=== PATIENT | male | born 1985 | race Caucasian/White ===

== ENCOUNTER 2023-04-09 21:25 | Emergency (ER) | payer MEDICAID, SELFPAY ==
[2023-04-09 21:29] VITALS: BP 124/77; PULSE 79; RESP 22; O2SAT 100; BMI 24.4
--- NOTE | 2023-04-09 21:30 | ED_ITS ---
HPI - Nausea/Vomiting/Diarrhea General Chief complaint: Dizziness Stated complaint: anxiety Time Seen by Provider: 04/09/23 21:30 History of Present Illness HPI Narrative: patient presents from work. State he because abruptly dizzy with the room spinning. States this has happen before and he found that if he ate something this would help. Tried eating tonight and started vomiting. Presents to the Er via Squad. Squad called [facility] and states he was panicking and they gave 2mg Versed before he arrived. He denies headache or ear pain. no fever or extremity weakness Related Data Home Medications Medication Instructions Recorded Confirmed bupropion HCl 300 mg 24 hr tablet, mg PO 04/09/23 extended release lamotrigine 200 mg tablet mg 04/09/23 quetiapine 50 mg tablet mg 04/09/23 Allergies Allergy/AdvReac Type Severity Reaction Status Date / Time No Known Drug Allergies Allergy Verified 04/09/23 21:37 Review of Systems 2 ROS Status of ROS 10 or more systems reviewed and unremarkable except as noted in history and below PFSH PFSH Social History Smoking status: Current every day smoker Exam Constitutional Vital Signs, click to edit/add: Last Vital Signs Pulse 79 04/09/23 21:29 Resp 22 04/09/23 21:29 BP 124/77 04/09/23 21:29 Pulse Ox 100 04/09/23 21:29 O2 Del Method Room Air 04/09/23 21:29 Common normals: average body habitus, oriented x3, no limitations, healthy appearing, alert and well nourished [facility] Common normals: normocephalic and head/scalp atraumatic Eye Common normals: EOMs intact bilaterally and conjunctivae normal Respiratory Common normals: normal respiratory effort and no use of accessory muscles Cardio Common normals: regular rate, regular rhythm, S1 normal heart sound and S2 normal heart sound GI Common normals: Normal to inspection, nondistended, normoactive bowel sounds present, soft to palpation and non-tender Extremity Common normals: normal to inspection and full ROM Neuro Common normals: oriented x3, CN's II-XII intact bilaterally, moves all extremities and no focal motor deficits Psych Appearance: grossly normal Course Vital Signs Vital signs: Vital Signs Pulse Rate 79 04/09/23 21:29 Respiratory Rate 22 04/09/23 21:29 Blood Pressure 124/77 04/09/23 21:29 Pulse Oximetry 100 04/09/23 21:29 Oxygen Delivery Method Room Air 04/09/23 21:29 Pulse Rate 79 04/09/23 21:29 Respiratory Rate 22 04/09/23 21:29 Blood Pressure 124/77 04/09/23 21:29 Pulse Oximetry 100 04/09/23 21:29 Oxygen Delivery Method Room Air 04/09/23 21:29 MDM - Nausea/Vomiting/Diarrhea MDM Narrative Medical decision making narrative: patient presents with vertigo and vomiting. past episodes of vertigo that he was able to manage himself. labs with mild anemia and mild hypokalemia. Patient treated with valium and ativert with resolution of his symptoms. Discharged home to follow up with his doctor for a recheck Lab Data Labs: Lab Results 04/09/23 Range/Units 21:31 WBC 10.3 (4.0-11.0) 10^3/uL RBC 3.99 L (4.70-6.10) 10^6/uL Hgb 12.6 L (14.0-18.0) g/dL Hct 36.2 L (42.0-54.0) % MCV 90.7 (80.0-94.0) fL MCH 31.6 (25.9-34.0) pg MCHC 34.8 (29.9-35.2) g/dL RDW 11.2 (11.0-15.0) % Plt Count 262 (150-450) 10^3/uL MPV 10.2 (9.5-13.5) fL Neut % (Auto) 78.6 H (43.0-75.0) % Lymph % (Auto) 13.9 L (20.5-60.0) % [place] % (Auto) 6.4 (1.7-12.0) % Eos % (Auto) 0.5 L (0.9-7.0) % Baso % (Auto) 0.4 (0.2-2.0) % Neut # (Auto) 8.1 H (1.4-6.5) 10^3/uL Lymph # (Auto) 1.4 (1.2-3.8) 10^3/uL [place] # (Auto) 0.7 (0.3-0.8) 10^3/uL Eos # (Auto) 0.1 (0.0-0.7) 10^3/uL Baso # (Auto) 0.0 (0.0-0.1) 10^3/uL Abs Immat Gran (auto) 0.02 (0.00-0.03) 10^3/uL Imm/Tot Granulo (auto) 0.2 (0.0-0.5) % Sodium 138 (136-145) mmol/L Potassium 3.2 L (3.5-5.1) mmol/L Chloride 103 (98-107) mmol/L Carbon Dioxide 25.2 (21.0-32.0) mmol/L Anion Gap 13.0 BUN 12.0 (7.0-18.0) mg/dL Creatinine 1.05 (0.70-1.30) mg/dL Est GFR ( Amer) >60 (>=60) Est GFR (Non-Af Amer) >60 (>=60) BUN/Creatinine Ratio 11.4 Glucose 107 H (74-106) mg/dL Calcium 8.8 (8.5-10.1) mg/dL Total Bilirubin 0.6 (0.2-1.0) mg/dL AST 22 (15-37) U/L ALT 23 (16-63) U/L Alkaline Phosphatase 72 (46-116) U/L Total Protein 6.9 (6.4-8.2) g/dL Albumin 4.1 (3.4-5.0) g/dL Globulin 2.8 g/dL Albumin/Globulin Ratio 1.5 Discharge Plan Discharge Chief Complaint: Dizziness Clinical Impression: Benign paroxysmal positional vertigo Patient Disposition: Home, Self-Care Prescriptions / Home Meds: No Action lamotrigine 200 mg tablet bupropion HCl 300 mg tablet extended release 24 hr PO quetiapine 50 mg tablet Instructions: Benign Paroxysmal Positional Vertigo (ED) Additional Instructions: follow up with your doctor next week for recheck. Drink plenty of fluids Stand Alone Forms: Portal Instructions Referrals: MABLE RODRIGUEZ [Physician] - 1 week
--- NOTE | 2023-04-09 21:35 | PC.NURSE ---
Pt presents to ER for extreme nausea/dizziness/anxiety like symptoms Per squad report pt was picked up due to nausea vomiting but pt became very anxious in squad and they were not able to calm him down verbally, pt wa given 2mg of Versed in route per Dr. Barber orders On arrival pt is anxious but cooperative, pt is cold and sweaty but feels hot Pt is visibly restless Pt states he started Wellbutrin a few months ago and these symptoms have been getting worse and more frequent Pt denies suicidal or homicidal ideation Pt states he has a known history of anxiety but has never been told he has had anxiety or panic attacks Pt states he used to go to counseling but it has been a long time Pt was at work when these symptoms began tru Pt has an 18g IV established in the left AC Labs were drawn from site by this nurse Pt given verbal reassurance
[2023-04-09 21:54] LABS: Basophils Percent Auto 0.4 % (0.2-2.0); Eosinophils Absolute Auto 0.1 10^3/uL (0.0-0.7); Eosinophils Percent Auto 0.5 % (0.9-7.0); Hematocrit 36.2 % (42.0-54.0); Hemoglobin 12.6 g/dL (14.0-18.0); Immature Granulocytes Abs Auto 0.02 10^3/uL (0.00-0.03); Immature Granulocytes Pct Auto 0.2 % (0.0-0.5); Lymphocytes Absolute Auto 1.4 10^3/uL (1.2-3.8); Lymphocytes Percent Auto 13.9 % (20.5-60.0); Mean Corpuscular HGB Conc 34.8 g/dL (29.9-35.2); Mean Corpuscular Hemoglobin 31.6 pg (25.9-34.0); Mean Corpuscular Volume 90.7 fL (80.0-94.0); Mean Platelet Volume 10.2 fL (9.5-13.5); Monocytes Absolute Auto 0.7 10^3/uL (0.3-0.8); Monocytes Percent Auto 6.4 % (1.7-12.0); Neutrophils Absolute Auto 8.1 10^3/uL (1.4-6.5); Neutrophils Percent Auto 78.6 % (43.0-75.0); Platelet Count 262 10^3/uL (150-450); Red Blood Count 3.99 10^6/uL (4.70-6.10); Red Cell Distribution Width 11.2 % (11.0-15.0); White Blood Count 10.3 10^3/uL (4.0-11.0)
[2023-04-09 22:09] LABS: Alanine Aminotransferase 23 U/L (16-63); Albumin Globulin Ratio 1.5; Albumin Level 4.1 g/dL (3.4-5.0); Alkaline Phosphatase 72 U/L (46-116); Aspartate Amino Transferase 22 U/L (15-37); BUN Creatinine Ratio 11.4; Bilirubin Total 0.6 mg/dL (0.2-1.0); Calcium 8.8 mg/dL (8.5-10.1); Carbon Dioxide 25.2 mmol/L (21.0-32.0); Chloride 103 mmol/L (98-107); Estimated GFR (African America >60 (>=60); Estimated GFR (Non-African Ame >60 (>=60); Globulin 2.8 g/dL; Glucose 107 mg/dL (74-106); Potassium 3.2 mmol/L (3.5-5.1); Sodium 138 mmol/L (136-145); Total Protein 6.9 g/dL (6.4-8.2)
[2023-04-09] MEDS: MECLIZINE HCL 12.5 MG TABLET 25 MG PO (22:13)
[2023-04-09] MEDS: ONDANSETRON PF 4 MG/2 ML VIAL IV (22:13)
[2023-04-09] MEDS: DIAZEPAM 5 MG/ML - 2 ML INJ SYRINGE IV (22:13)
[2023-04-09] MEDS: 0.9 % SODIUM CHLORIDE 1,000 ML 999 ML IV (22:13)
[2023-04-09 23:31] VITALS: BP 124/77; PULSE 80; RESP 18; O2SAT 100
== END 2023-04-09 23:36 | disposition home or self-care (01) ==
PROVIDERS: Emergency Provider Internal Medicine; PCP Nurse Practitioner
DX: H81.10 Benign paroxysmal vertigo, unspecified ear (principal); Z79.899 Other long term (current) drug therapy; F17.210 Nicotine dependence, cigarettes, uncomplicated; D64.9 Anemia, unspecified; E87.6 Hypokalemia
CPT/HCPCS: 36415; 80053; 85025; 96374; 96375; 99284

== ENCOUNTER 2023-10-26 00:54 | Emergency (ER) | payer MEDICAID, SELFPAY ==
[2023-10-26 01:02] VITALS: BP 153/96; PULSE 94; TEMP 36.4; O2SAT 97; BMI 25.8
--- OUTSIDE RECORDS SUMMARY | 2023-10-26 01:04 | XMS_ITS | CCD ---
Author Organization [facility] Care Team Providers Care Books Binder Name Role Phone TAVO, DR ESEQUIEL Lancaster Admitting Unavailable TAVO, DR ESEQUIEL Lancaster Attending Unavailable TAVO, DR ESEQUIEL Lancaster Consulting Unavailable HOUSE, DR AKINS Primary Care Unavailable Naun, Gaurang Consulting Unavailable HOUSE, DR AKINS Attending Unavailable [place], DR AKINS Consulting Unavailable [facility] [place], DR CARMONA Primary Care Unavailable [place], DR AKINS Admitting Unavailable HOUSE, DR AKINS Admitting Unavailable HOUSE, DR AKINS Attending Unavailable [place], DR PONCHO Hahn Consulting Unavailable HOUSE, DR AKINS Primary Care Unavailable HOUSE, DR AKINS Consulting Unavailable Problems Active Problems Problem Classification Problem Date Documented Da te Episodic/Chronic Abdominal pain (4 sources) Right lower quadrant pain; Translations: [RIGHT LOWER QUADRANT PAIN] Onset: 08-13-2021 Episodic Other nervous system disorders (1 source) Other chronic pain; Translations: [OTHER CHRONIC PAIN] Onset: 08-14-2021 Chronic Substance-related disorders (1 source) Nicotine dependence, cigarettes, uncomplicated; Translations: [NICOTINE DEPEND CIGARETTES UNCOMP] Onset: 08-14-2021 Chronic Unclassified (3 sources) LOW BACK PAIN, UNSPECIFIED; Translations: [LOW BACK PAIN, UNSPECIFIED] Onset: 08-01-2021 Unclassified (2 sources) CONTACT W/AND (SUSP) EXPOS COVID-19; Translations: [CONTACT W/AND (SUSP) EXPOS COVID-19] Onset: 10-02-2020 Viral infection (1 source) COVID-19; Translations: [COVID-19] Onset: 10-02-2020 Past or Other Problems Problem Classification Problem Date Documented Da te Episodic/Chronic Unclassified (1 source) LOW BACK PAIN, UNSPECIFIED; Translations: [LOW BACK PAIN, UNSPECIFIED] Onset: 07-30-2021 Unclassified (1 source) CONTACT W/AND (SUSP) EXPOS COVID-19; Translations: [CONTACT W/AND (SUSP) EXPOS COVID-19] Onset: 09-26-2020 Results Test Name Value Interpretation Reference Range Facil ity AMYLASEon 08-13-2021 Amylase [Catalytic activity/Vol] 59 U/L Normal 31-110 [facility] Comment on above: Performed By: #### A MY, LIPA #### [facility] [address] [place] [address] Dr. Zuleyka Hunt CBC AUTO DIFFon 08-13-2021 BASO # 0.0 103/ul Normal 0.0-0.1 [facility] Comment on above: Performed By: #### C BC #### [facility] [address] [place] [address] Dr. Zuleyka Hunt Basophils/100 WBC (Bld) 0.4 % Normal 0.2-2.0 [facility] Comment on above: Performed By: #### C BC #### [facility] [address] [place] [address] Dr. Zuleyka Hunt EO # 0.2 103/ul Normal 0.0-0.7 [facility] Comment on above: Performed By: #### C BC #### [facility] [address] [place] [address] Dr. Zuleyka Hunt Eosinophils/100 WBC (Bld) 2.2 % Normal 0.9-7.0 [facility] Comment on above: Performed By: #### C BC #### [facility] [address] [place] [address] Dr. Zuleyka Hunt Erythrocyte distribution width (RBC) [Ratio] 11.4 % Normal 11.0-15.0 [facility] Comment on above: Performed By: #### C BC #### [facility] [address] [place] [address] Dr. Zuleyka Hunt Hematocrit (Bld) [Volume fraction] 41.0 % Critically low 42.0-54.0 [facility] Comment on above: Performed By: #### C BC #### [facility] [address] [place] [address] Dr. Zuleyka Hunt Hemoglobin (Bld) [Mass/Vol] 13.6 g/dL Critically low 14.0-18.0 [facility] Comment on above: Performed By: #### C BC #### [facility] [address] [place] [address] Dr. Zuleyka Hunt IG # 0.03 10e3/ul Normal 0.00-0.03 [facility] Comment on above: Performed By: #### C BC #### [facility] [address] [place] [address] Dr. Zuleyka Hunt IG % 0.3 % Normal 0.0-0.5 [facility] Comment on above: Performed By: #### C BC #### [facility] [address] [place] [address] Dr. Zuleyka Hunt LYMPH # 3.0 103/ul Normal 1.2-3.8 [facility] Comment on above: Performed By: #### C BC #### [facility] [address] [place] [address] Dr. Zuleyka Hunt Lymphocytes/100 WBC (Bld) 29.0 % Normal 20.5-60.0 [facility] Comment on above: Performed By: #### C BC #### [facility] [address] [place] [address] Dr. Zuleyka Hunt MANUAL DIFF REQ NO Normal [facility] Comment on above: Performed By: #### C BC #### [facility] [address] [place] [address] Dr. Zuleyka Hunt MCH (RBC) [Entitic mass] 31.2 pg Normal 25.9-34.0 [facility] Comment on above: Performed By: #### C BC #### [facility] [address] [place] [address] Dr. Zuleyka Hunt MCHC (RBC) [Mass/Vol] 33.2 g/dL Normal 29.9-35.2 [facility] Comment on above: Performed By: #### C BC #### [facility] [address] [place] [address] Dr. Zuleyka Hunt MCV (RBC) [Entitic vol] 94.0 fL Normal 80.0-94.0 [facility] Comment on above: Performed By: #### C BC #### [facility] [address] [place] [address] Dr. Zuelyka Hunt MONO # 0.8 103/ul Normal 0.3-0.8 [facility] Comment on above: Performed By: #### C BC #### [facility] [address] [place] [address] Dr. Zuleyka Hunt Monocytes/100 WBC (Bld) 8.1 % Normal 1.7-12.0 [facility] Comment on above: Performed By: #### C BC #### [facility] [address] [place] [address] Dr. Zuleyka Hunt NEUT # 6.1 103/ul Normal 1.4-6.5 [facility] Comment on above: Performed By: #### C BC #### [facility] [address] [place] [address] Dr. Zuleyka Hunt Neutrophils/100 WBC (Bld) 60.0 % Normal 43.0-75.0 [facility] Comment on above: Performed By: #### C BC #### [facility] [address] [place] [address] Dr. Zuleyka Hunt Platelet mean volume (Bld) [Entitic vol] 9.9 fL Normal 9.5-13.5 [facility] Comment on above: Performed By: #### C BC #### [facility] [address] [place] [address] Dr. Zuleyka Hunt PLT 250 103/ul Normal 150-450 [facility] Comment on above: Performed By: #### C BC #### [facility] [address] [place] [address] Dr. Zuleyka Hunt RBC 4.36 106/ul Critically low 4.70-6.10 [facility] Comment on above: Performed By: #### C BC #### [facility] [address] [place] [address] Dr. Zuleyka Hunt WBC 10.2 103/ul Normal 4.0-11.0 [facility] Comment on above: Performed By: #### C BC #### [facility] [address] [place] [address] ABD/PELV W [place] 08-14-[address] ABD/PELV W CON EXAMINATION: CT ABD/PELV W CON HISTORY: Right lower quadrant abdominal pain, nausea COMPARISON: None. TECHNIQUE: Multiple axial views CT abdomen pelvis after administration of 100 mL Omnipaque 300 IV contrast. Coronal sagittal reformats. Dose reduction techniques were achieved by using automated exposure control and/or adjustment of mA and/or kV according to patient size and/or use of iterative reconstruction technique. FINDINGS: Visualized lung bases and cardiac apex are unremarkable. Liver, gallbladder, spleen, pancreas, adrenal glands, kidneys, urinary bladder, and other pelvic structures are unremarkable. Appendix is not seen, probably surgically absent. No evidence for small bowel obstruction, large ascites, or free air. Moderate amount stool within the large bowel. Minimal terminal ileum wall enhancement. No acute bony abnormality. IMPRESSION: Appendix is not seen, probably surgically absent. Minimal terminal ileum wall enhancement could reflect underlying ileitis/enteritis in the proper clinical setting; although, this could just be fluid within the terminal ileum increasing the conspicuity of the bowel wall. No surrounding inflammatory stranding. Electronically authenticated by: GAURANG DURBIN Date: 2021-08-13 02:13 Normal [facility] ER URINE PROFILEon 2 Bilirubin Ql (U) Negative Normal NEGATIVE [facility] Comment on above: Performed By: #### KIMBERLY PULIDO #### [facility] [address] [place] [address] Dr. Zuleyka Hunt Clarity (U) CLEAR Normal CLEAR [facility] Comment on above: Performed By: #### YRIS PULIDORO #### [facility] [address] [place] [address] Dr. Zuleyka Hunt Color (U) LT. YELLOW Normal YELLOW [facility] Comment on above: Performed By: #### YRIS PULIDORO #### [facility] [address] [place] [address] Dr. Zuleyka BRUNO A micrscopic examination will be performed if indicated. Normal [facility] Comment on above: Performed By: #### Tonia HENRIQUEZ UMICRO #### [facility] [address] [place] [address] Dr. Zuleyka Hunt Glucose Ql (U) Negative Normal NEGATIVE [facility] Comment on above: Performed By: #### Tonia HENRIQUEZ UMICRO #### [facility] [address] [address] [address] Zuleyka Hunt Hemoglobin Ql (U) TRACE-INTACT Abnormal NEGATIVE [facility] Comment on above: Performed By: #### Tonia HENRIQUEZ UMICRO #### [facility] [address] [place] [address] Dr. Zuleyka Hunt Ketones Ql (U) Negative Normal NEGATIVE [facility] Comment on above: Performed By: #### Tonia HENRIQUEZ UMICRO #### [facility] [address] [place] [address] Dr. Zuleyka Hunt LEUKOCYTES Negative Normal NEGATIVE [facility] Comment on above: Performed By: #### Tonia HENRIQUEZ UMICRO #### [facility] [address] [place] [address] Dr. Zuleyka Hunt Nitrite Ql (U) Negative Normal NEGATIVE [facility] Comment on above: Performed By: #### Tonia HENRIQUEZ UMICRO #### [facility] [address] [place] [address] Dr. Zuleyka Hunt pH (U) 7.0 [pH] Normal 5-9 [facility] Comment on above: Performed By: #### Tonia HENRIQUEZ UMICRO #### [facility] [address] [place] [address] Dr. Zuleyka Hunt SPEC GRAVITY <=1.005 Abnormal 1.005-<=1.025 [facility] Comment on above: Performed By: #### Tonia HENRIQUEZ UMICRO #### [facility] [address] [place] [address] Dr. Zuleyka Hunt UA PROTEIN Negative Normal NEGATIVE/ TRACE [facility] Comment on above: Performed By: #### Tonia HENRIQUEZ UMICRO #### [facility] [address] [place] [address] Dr. Zuleyka Hunt UR MICRO IND INDICATED Normal [facility] Comment on above: Performed By: #### Tonia HENRIQUEZ UMICRO #### [facility] [address] [place] [address] Dr. Zuleyka Hunt Urobilinogen Qn (U) 0.2 {Nelly'U}/dL Normal 0.2 - 1.0 [facility] Comment on above: Performed By: #### E KIMBERLY HENRIQUEZ #### [facility] [address] [place] [address] Dr. Zuleyka Hunt LIPASEon 08-13-2021 Lipase [Catalytic activity/Vol] 85.0 U/L Normal 23.0-300.0 [facility] Comment on above: Performed By: #### A MY, LIPA #### [facility] [address] [place] [address] Dr. Zuleyka Hunt PROF 14(COMP METB)on 022 Albumin [Mass/Vol] 4.1 g/dL Normal 3.5-5.0 [facility] Comment on above: Performed By: #### C MP #### [facility] [address] [place] [address] Dr. Zuleyka Hunt Albumin/Globulin [Mass ratio] 1.3 {ratio} Normal [facility] Comment on above: Performed By: #### C MP #### [facility] [address] [place] [address] Dr. Zuleyka Hunt ALP [Catalytic activity/Vol] 128 U/L Critically high 38-126 [facility] Comment on above: Performed By: #### C MP #### [facility] [address] [place] [address] Dr. Zuleyka Hunt ALT [Catalytic activity/Vol] 36 U/L Normal 21-72 [facility] Comment on above: Performed By: #### C MP #### [facility] [address] [place] [address] Dr. Zuleyka Hunt Anion gap [Moles/Vol] 7.6 mmol/L Normal [facility] Comment on above: Performed By: #### C MP #### [facility] [address] [place] [address] Dr. Zuleyka Hunt AST [Catalytic activity/Vol] 26 U/L Normal 17-59 [facility] Comment on above: Performed By: #### C MP #### [facility] [address] [address] [address] Zuleyka Hunt Bilirubin [Mass/Vol] 0.3 mg/dL Normal 0.2-1.3 [facility] Comment on above: Performed By: #### C MP #### [facility] [address] [address] [address] Zuleyka Hunt Calcium [Mass/Vol] 9.0 mg/dL Normal 8.4-10.2 [facility] Comment on above: Performed By: #### C MP #### [facility] [address] [place] [address] Dr. Zuleyka Hunt Chloride [Moles/Vol] 104 mmol/L Normal 98-107 [facility] Comment on above: Performed By: #### C MP #### [facility] [address] [place] [address] Dr. Zuleyka Hunt CO2 [Moles/Vol] 28.4 mmol/L Normal 22.0-30.0 [facility] Comment on above: Performed By: #### C MP #### [facility] [address] [place] [address] Dr. Zuleyka Hunt Creatinine [Mass/Vol] 1.08 mg/dL Normal 0.66-1.25 [facility] Comment on above: Performed By: #### C MP #### [facility] [address] [place] [address] Dr. Zuleyka Hunt EGFR-AF [place]ORE[place] >60 Normal >=60 [facility] Comment on above: Performed By: #### C MP #### [facility] [address] [place] [address] Dr. Zuleyka Hunt EGFR-NON AF [place] >60 Normal >=60 [facility] Comment on above: Performed By: #### C MP #### [facility] [address] [place] [address] Dr. Zuleyka Hunt Globulin (S) [Mass/Vol] 3.1 g/dL Normal [facility] Comment on above: Performed By: #### C MP #### [facility] [address] [place] [address] Dr. Zuleyka Hunt Glucose [Mass/Vol] 107 mg/dL Critically high 74-106 T [facility] Comment on above: Performed By: #### C MP #### [facility] [address] [place] [address] Dr. Zuleyka Hunt Potassium [Moles/Vol] 4.0 mmol/L Normal 3.4-5.0 [facility] Comment on above: Performed By: #### C MP #### [facility] [address] [place] [address] Dr. Zuleyka Hunt Protein [Mass/Vol] 7.2 g/dL Normal 6.1-8.2 [facility] Comment on above: Performed By: #### C MP #### [facility] [address] [place] [address] Dr. Zuleyka Hunt Sodium [Moles/Vol] 136 mmol/L Critically low 137-145 [facility] Comment on above: Performed By: #### C MP #### [facility] [address] [place] [address] Dr. Zuleyka Hunt Urea nitrogen [Mass/Vol] 11.0 mg/dL Normal 9.0-20.0 [facility] Comment on above: Performed By: #### C MP #### [facility] [address] [place] [address] Dr. Zuleyka Hunt Urea nitrogen/Creatinin e [Mass ratio] 10.2 mg/mg Normal [facility] Comment on above: Performed By: #### C MP #### [facility] [address] [place] [address] Dr. Zuleyka Hunt URINE MICROSCOPIC ONLYon BACTERIA NONE SEEN Normal NONE SEEN [facility] Comment on above: Performed By: #### KIMBERLY PULIDO #### [facility] [address] [place] [address] Dr. Zuleyka Hunt Bacteria identified Cx Nom (U) NOT INDICATED Normal [facility] Comment on above: Performed By: #### YRIS PULIDORO #### [facility] [address] [place] [address] Dr. Zuleyka Hunt CAST NONE SEEN Normal NONE SEEN [facility] Comment on above: Performed By: #### E RUR, UMICRO #### [facility] [address] [place] [address] Dr. Zuleyka Hunt Crystals LM Nom (Urine sed) NONE SEEN Normal NONE SEEN [facility] Comment on above: Performed By: #### E RUR, UMICRO #### [facility] [address] [place] [address] Dr. Zuleyka Hunt Epithelial cells LM Ql (Urine sed) RARE Normal NONE SEEN /RARE [facility] Comment on above: Performed By: #### E RUR, UMICRO #### [facility] [address] [place] [address] Dr. Zuleyka Hunt MUCOUS NONE SEEN Normal NONE SEEN [facility] Comment on above: Performed By: #### E RUR, UMICRO #### [facility] [address] [place] [address] Dr. Zuleyka Hunt RBC 0-2 Normal 0-2 [facility] Comment on above: Performed By: #### E RUR, UMICRO #### [facility] [address] [place] [address] Dr. Zuleyka Hunt WBC NONE SEEN Normal NONE SEEN [facility] Comment on above: Performed By: #### E RUR, UMICRO #### [facility] [address] [place] [address] Dr. Zuleyka Hunt XR LSPINE MIN 4 VIEWSon 07-15 XR LSPINE MIN 4 VIEWS EXAMINATION: XR LSPINE MIN 4 VIEWS HISTORY: Pain in lumbar spine COMPARISON: No relevant comparison available. FINDINGS: BONES: Normal alignment with no acute fracture or spondylolisthesis. Mild anterior wedging T12 and L1, endplate sclerosis suggests chronic injury. Minimal degenerative spondylosis. Mild facet osteoarthropathy DISC SPACES: Normal. No significant disc height narrowing, subluxation, or endplate abnormality. PARASPINOUS: Negative. No paraspinous abnormality is seen. OTHER: Negative. IMPRESSION: Mild degenerative changes Electronically authenticated by: PONCHO MANUEL Date: 2021-07-30 12:56 Normal [facility] Covid-19 PCR (CVDTBH)on 09-12 SARS-CoV-2 (COVID-19) RNA HOA+probe Ql (Unsp spec) Detected Abnormal NOT DETECTED [facility] Comment on above: Result Comment: This test is not yet approved or cleared by the [place] FDA. When there are no FDA-approved or cleared tests available, and other criteria are met, FDA can make tests available under an emergency access mechanism called an Emergency Use Authorization (EUA). The EUA for this test is supported by the [place] of Health and Human Service's (HHS's) declaration that circumstances exist to justify the emergency use of in vitro diagnostics for the detection and/or diagnosis of the virus that causes COVID-19. This EUA will remain in effect (meaning this test can be used) for the duration of the COVID-19 declaration justifying emergency of IVDs, unless it is terminated or revoked by FDA (after which the test may no longer be used). Performed By: #### [facility] #### [facility] [address] [place] [id number] Vikash Brownlee Encounters Encounter Date Encounter Type Care Provider Facility Start: 08-13-2021 End: 08-13-[address] ESEQUIEL VO Facility:[facility] Start: 07-30-2021 End: 07-31-[address] MABLE RODRIGUEZ Facility:[facility] Start: 09-26-2020 End: 09-26-[address] MABLE RODRIGUEZ Facility:[facility] Payers Date Payer Category Payer Unknown [id number] .. [id number] 1984 Unknown [id number] 1984 Unknown [id number] 1959 Unknown [id number] 1960 Unknown [id number] Summary Purpose Family History No Family History Records Found Advance Directives No Advanced Directives Records Found Additional Source Comments (unrecognized sect ion and content) No Status Records Found INFORMATION SOURCE (unrecogn ized section and content) DATE CREATED AUTHOR 08/14/[address] [facility] FOR RECORDS PERTAINING TO PATIENTS WHO ARE OR HAVE BEEN ENROLLED IN A CHEMICAL DEPENDENCY/SUBSTANCEABUSE PROGRAM, SOME INFORMATION MAY BE OMITTED. This clinical summary was aggregated from multiple sources. Caution should be exercised in using it in the provision of clinical care. This summary normalizes information from multiple sources, and as a consequence, information in this document may materially change the coding, format and clinical context of patient data. In addition, data may be omitted in some cases. CLINICAL DECISIONS SHOULD BE BASED ON THE PRIMARY CLINICAL RECORDS. [facility]. provides no warranty or guarantee of the accuracy or completeness of information in this document.
--- NOTE | 2023-10-26 01:17 | ED_ITS ---
HPI - Extremity Problem General Chief complaint: Extremity Problem, Nontraumatic Stated complaint: L FINGER PAIN Time Seen by Provider: 10/26/23 01:14 Source: patient Mode of arrival: walk-in Limitations: no limitations History of Present Illness HPI Narrative: presents complaining of left index finger pain. States he had pain last week and it resolved. pain again tonight. finger feels cold and looks bruised. Denies injury. no weakness Related Data Home Medications ?Medication ?Instructions ?Recorded ?Confirmed bupropion HCl 300 mg 24 hr tablet, 300 mg PO DAILY 04/09/23 10/26/23 extended release lamotrigine 200 mg tablet 200 mg DAILY 04/09/23 quetiapine 50 mg tablet 50 mg DAILY 04/09/23 cholecalciferol (vitamin D3) 125 125 mcg DAILY 10/26/23 mcg (5,000 unit) capsule Allergies Allergy/AdvReac Type Severity Reaction Status Date / Time No Known Drug Allergies Allergy Verified 04/09/23 21:37 Review of Systems ROS Status of ROS 10 or more systems reviewed and unremark able except as noted in history and below [facility] Medical History (Updated 10/26/23 @ 02:16 by Timoteo Johnson MD) Epilepsy ?G40.909 - Epilepsy, unspecified, not intractable, without status epilepticus (ICD-10) Bipolar 1 disorder ?F31.9 - Bipolar disorder, unspecified (ICD-10) Social History (Updated 10/26/23 @ 01:12 by Blanca Sequeira) Smoking status: Current every day smoker Do you use any of these nicotine containing products: vaping products Non-prescribed substance use: cannabis (any form) Exam Constitutional Vital Signs, click to edit/add: Last Vital Signs Temp 97.6 F 10/26/23 01:02 Pulse 94 H 10/26/23 01:02 Resp 18 10/26/23 01:02 BP 153/96 H 10/26/23 01:02 Pulse Ox 97 10/26/23 01:02 O2 Del Method Room Air 10/26/23 01:02 Common normals: no apparent distress, average body habitus, oriented x3, no limitations, healthy appearing, alert and well nourished Eye Common normals: EOMs intact bilaterally and conjunctivae normal Respiratory Common normals: normal respiratory effort, no retractions and no use of accessory muscles Cardio Common normals: regular rate, regular rhythm and S1 normal heart sound Extremity Other: left index finger is warm. nontender.. FROM Neuro Common normals: oriented x3, CN's II-XII intact bilaterally, moves all extremities, no focal motor deficits and no sensory deficits noted Psych Appearance: grossly normal Course Vital Signs Vital signs: Vital Signs Temperature 97.6 F 10/26/23 01:02 Pulse Rate 94 H 10/26/23 01:02 Respiratory Rate 18 10/26/23 01:02 Blood Pressure 153/96 H 10/26/23 01:02 Pulse Oximetry 97 10/26/23 01:02 Oxygen Delivery Method Room Air 10/26/23 01:02 Temperature 97.6 F 10/26/23 01:02 Pulse Rate 94 H 10/26/23 01:02 Respiratory Rate 18 10/26/23 01:02 Blood Pressure 153/96 H 10/26/23 01:02 Pulse Oximetry 97 10/26/23 01:02 Oxygen Delivery Method Room Air 10/26/23 01:02 MDM - Extremity (Nontraumatic) MDM Narrative Medical decision making narrative: patient presents with non traumatic finger pain. xray and labs neg. exam unr emarkable. no clear cause to explain his pain. Discharged to follow up with his doctor Discharge Plan Discharge Stand Alone Forms: Portal Instructions Chief Complaint: Extremity Problem, Nontraumatic Clinical Impression: Finger pain, left Patient Disposition: Home, Self-Care Prescriptions / Home Meds: No Action lamotrigine 200 mg tablet 200 mg DAILY bupropion HCl 300 mg tablet extended release 24 hr 300 mg PO DAILY quetiapine 50 mg tablet 50 mg DAILY cholecalciferol (vitamin D3) 125 mcg (5,000 unit) capsule 125 mcg DAILY Print Language: [place] Instructions: Arthralgia (ED) Additional Instructions: follow up with your doctor for recheck Referrals: ODETTE GOODWIN [Primary Care Provider] - 1 week
--- NOTE | 2023-10-26 01:18 | PC.NURSE ---
Pt has pain in the lt pointer finger that started suddenly about a week ago. pt states that he also noticed bruising. pt denies any injury to the finger. Pt does have some discoloration in the distal part of finger. pt states that it does hurt to move.
--- NOTE | 2023-10-26 01:19 | XR_ITS ---
[facility] [id number] Patient Name: NATALIE LOWERY MRN: [id number] date: 1985 Sex: M Assigned Patient Location: ER Current Patient Location: ER Accession/Order Number: [id number] Exam Date: 10/26/2023 01:35 Report Date: 10/26/2023 01:59 At the request of: ALEX MARTI Procedure: XR hand LT min 3V XR hand LT min 3V, 10/26/2023 12:35 AM CDT: History: pain. . Comparison: None. Technique: 3 views left hand Findings/Impression: There is no fracture or malalignment. The joint spaces are preserved. The soft tissues are normal. Electronically authenticated by: GAURANG GARCIA Date: 10/26/2023 01:59
[2023-10-26 01:35] LABS: Basophils Absolute Auto 0.1 10^3/uL (0.0-0.1); Basophils Percent Auto 0.6 % (0.2-2.0); Eosinophils Absolute Auto 0.3 10^3/uL (0.0-0.7); Eosinophils Percent Auto 3.1 % (0.9-7.0); Hematocrit 39.9 % (42.0-54.0); Hemoglobin 13.5 g/dL (14.0-18.0); Immature Granulocytes Abs Auto 0.02 10^3/uL (0.00-0.03); Immature Granulocytes Pct Auto 0.2 % (0.0-0.5); Lymphocytes Absolute Auto 2.6 10^3/uL (1.2-3.8); Lymphocytes Percent Auto 31.8 % (20.5-60.0); Mean Corpuscular HGB Conc 33.8 g/dL (29.9-35.2); Mean Corpuscular Hemoglobin 30.8 pg (25.9-34.0); Mean Corpuscular Volume 91.1 fL (80.0-94.0); Mean Platelet Volume 9.7 fL (9.5-13.5); Monocytes Absolute Auto 0.6 10^3/uL (0.3-0.8); Monocytes Percent Auto 6.9 % (1.7-12.0); Neutrophils Absolute Auto 4.6 10^3/uL (1.4-6.5); Neutrophils Percent Auto 57.4 % (43.0-75.0); Platelet Count 299 10^3/uL (150-450); Red Blood Count 4.38 10^6/uL (4.70-6.10); Red Cell Distribution Width 11.7 % (11.0-15.0)
[2023-10-26 01:46] LABS: Anion Gap 9.9; C Reactive Protein <0.50 mg/dL (<=0.50); Calcium 9.3 mg/dL (8.5-10.1); Carbon Dioxide 27.8 mmol/L (21.0-32.0); Chloride 103 mmol/L (98-107); Estimated GFR (African America >60 (>=60); Estimated GFR (Non-African Ame >60 (>=60); Glucose 95 mg/dL (74-106); Potassium 3.7 mmol/L (3.5-5.1); Sodium 137 mmol/L (136-145); Uric Acid 7.5 mg/dL (3.5-7.2)
== END 2023-10-26 02:37 | disposition home or self-care (01) ==
PROVIDERS: Emergency Provider Internal Medicine; PCP Nurse Practitioner
DX: M79.645 Pain in left finger(s) (principal); G40.909 Epilepsy, unspecified, not intractable, without status epilepticus; F31.9 Bipolar disorder, unspecified; F17.290 Nicotine dependence, other tobacco product, uncomplicated
CPT/HCPCS: 36415; 73130; 80048; 84550; 85025; 86140; 99284